=== PATIENT | male | born 1955 | race Caucasian/White ===

== ENCOUNTER → 2017-04-22 | Outpatient (CLI) | payer OTHER ==
[~2017-04-22] MED LIST: AMLO5TAB2 PO; FISH OIL PO; HYDR25TA6 PO; MULT-516 PO
[2017-04-22 09:48] LABS: HEMATOCRIT 47.3 % (39.2-51.8); HEMOGLOBIN 16.5 g/dL (13.7-18.0); WHITE BLOOD COUNT 5.9 x10^3/uL (3.4-10)
[2017-04-22 09:55] LABS: BLOOD UREA NITROGEN 11 mg/dL (7-18)
[2017-04-22 09:59] LABS: ASPARTATE AMINO TRANSFERASE 20 U/L (15-37)
== END | disposition home or self-care (01) ==
LOC: STAR 08:23
PROVIDERS: ATTEND Neurological Surgery
DX: Z01.818 Encounter for other preprocedural examination (principal); M51.26 Other intervertebral disc displacement, lumbar region
CPT/HCPCS: 36415; 71020; 80053; 85025; 85610; 85730; 93005

== ENCOUNTER → 2017-08-04 | Outpatient (CLI) | payer OTHER | LOC: CARD 08:37 | PROVIDERS: ATTEND Specialist | DX: G40.901 Epilepsy, unspecified, not intractable, with status epilepticus (principal) | CPT/HCPCS: 95816; 95819 ==

== ENCOUNTER → 2017-08-04 | Outpatient (CLI) | payer OTHER ==
[~2017-08-04] MED LIST changes: +GADOBUTROL 10 MMOL/10 ML PFS ONE
== END | disposition home or self-care (01) ==
LOC: CFH 08:41
PROVIDERS: ATTEND Specialist
DX: G93.89 Other specified disorders of brain (principal); G40.901 Epilepsy, unspecified, not intractable, with status epilepticus
CPT/HCPCS: 70553; A9585